=== PATIENT | male | born 1935 | race Caucasian/White ===

== ENCOUNTER 2016-11-09 15:09 | Outpatient (CLI) | END 2016-11-09 15:10 | disposition home or self-care (01) ==

== ENCOUNTER 2016-12-07 14:08 | Outpatient (CLI) | payer MEDICARE, OTHER | END 2016-12-07 14:09 | disposition home or self-care (01) | DX: R06.09 Other forms of dyspnea (principal) ==

== ENCOUNTER 2016-12-22 11:14 | Outpatient (CLI) | payer MEDICARE, OTHER | END 2016-12-22 11:15 | disposition home or self-care (01) | DX: L23.9 Allergic contact dermatitis, unspecified cause (principal) ==

== ENCOUNTER 2016-12-22 13:22 | Outpatient (CLI) | payer MEDICARE, OTHER ==
[2016-12-22] MEDS ORDERED: ALBUTEROL NEB 2.5 MG/3 ML INH ONE (14:10)
== END 2016-12-22 13:23 | disposition home or self-care (01) ==
DX: R91.8 Other nonspecific abnormal finding of lung field (principal); R06.09 Other forms of dyspnea

== ENCOUNTER 2016-12-22 15:27 | Outpatient (CLI) | payer MEDICARE, OTHER | END 2016-12-22 15:28 | disposition home or self-care (01) | DX: R91.8 Other nonspecific abnormal finding of lung field (principal); L23.9 Allergic contact dermatitis, unspecified cause; R06.09 Other forms of dyspnea | CPT/HCPCS: 36415; 71020; 80053; 85025; 94060; 94727; 94729; J7613 ==

== ENCOUNTER 2017-01-06 11:17 | Outpatient (CLI) | payer MEDICARE, OTHER | END 2017-01-06 11:18 | disposition home or self-care (01) | DX: R07.9 Chest pain, unspecified (principal) ==